=== PATIENT | female | born 1990 | race African-American/Black ===

== ENCOUNTER 2017-03-07 00:26 | Emergency (ER) | payer SELFPAY ==
[~2017-03-07] VITALS: Ht 165.1 cm; Wt 77.0 kg
[2017-03-07] MEDS ORDERED: SODIUM CHLORIDE 0.9% 1,000 ML IV ONE (00:45)
[2017-03-07 01:12] LABS: BASOPHILS % 0.5 % (0.0-2.0); EOSINOPHILS % 1.4 % (0.0-5.0); HEMATOCRIT. 32.8 % (36.0-48.0); HEMOGLOBIN. 10.9 g/dL (12.0-16.0); LYMPHOCYTES % 38.8 % (20.0-50.0); MEAN CORPUSCULAR HEMOGLOBIN 28.7 pg (28.0-32.0); MEAN CORPUSCULAR VOLUME 86.3 fL (81.0-99.0); MEAN PLATELET VOLUME 10.4 fl (7.4-10.4); NEUTROPHILS % 52.3 % (40.0-76.0); PLATELET 263 x1000/uL (130-400); RED CELL DISTRIBUTION WIDTH 12.8 % (11.6-14.6)
[2017-03-07 01:17] LABS: CHLORIDE 102 mEq/L (98-107)
[2017-03-07 01:23] LABS: HCG SCREEN NEGATIVE
[2017-03-07 01:30] LABS: CARBON DIOXIDE 25 mEq/L (21-32); ETHANOL BLOOD < 10 mg/dL
[2017-03-07 02:12] LABS: *AMPHETAMINES SCREEN URINE NEGATIVE (NEGATIVE); *BARBITURATES SCREEN URINE NEGATIVE (NEGATIVE); *BENZODIAZEPINES SCREEN URINE NEGATIVE (NEGATIVE); *COCAINE SCREEN URINE NEGATIVE (NEGATIVE); METHADONE URINE SCREEN NEGATIVE (NEGATIVE); OPIATES URINE SCREEN NEGATIVE (NEGATIVE); PHENCYCLIDINE URINE SCREEN NEGATIVE (NEGATIVE)
[2017-03-07] MEDS ORDERED: POTASSIUM BICARB/CIT ACID 25 MEQ TABLET.EFF PO ONE (02:15)
[2017-03-07] MEDS ORDERED: SODIUM CHLORIDE 0.9% 1000ML BAG (SEPSIS BOLUS) IV ONE (02:15)
[2017-03-07 02:24] LABS: CANNABINOID URINE SCREEN PRESUMTIVE POSITIVE (NEGATIVE)
[2017-03-07] MEDS ORDERED: KCL 10 MEQ/50 ML IV SCH (02:30)
[2017-03-07] MEDS ORDERED: KCL 20MEQ/100ML PREMIX 100 ML IV ONE (04:30)
[2017-03-07 06:35] VITALS: BP 132/96
== END 2017-03-07 06:39 | disposition home or self-care (01) ==
LOC: ER 00:26
DX: E87.2 Acidosis (principal); F12.10 Cannabis abuse, uncomplicated; E87.6 Hypokalemia; R41.0 Disorientation, unspecified
CPT/HCPCS: 36415; 80053; 80305; 80307; 80329; 82962; 83605; 84132; 84703; 85025; 96360; 96361; 99291; G0482; J3480; J7030; Z7610; A4315